=== PATIENT | male | born 1955 | race Caucasian/White ===

== ENCOUNTER → 2018-11-19 | Outpatient (CLI) | payer OTHER ==
[~2018-11-19] MED LIST: CENTRUM COMPLE1 EACH; HYDROCODON-ACE1 EAC7 PO; MOBIC15 MG PO; ZOCOR40 MG PO
== END ==
LOC: CAT 09:32
DX: Z13.6 Encounter for screening for cardiovascular disorders (principal); I25.10 Atherosclerotic heart disease of native coronary artery without angina pectoris; E78.00 Pure hypercholesterolemia, unspecified